=== PATIENT | male | born 1965 ===

== ENCOUNTER 2024-05-03 10:30 | Emergency (ER) | payer SELFPAY | END 2024-05-03 11:25 | disposition home or self-care (01) | LOC: LL.ED 10:30 | DX: M96.89 Other intraoperative and postprocedural complications and disorders of the musculoskeletal system (principal); I10 Essential (primary) hypertension; E11.9 Type 2 diabetes mellitus without complications; Z79.4 Long term (current) use of insulin; Z88.5 Allergy status to narcotic agent | CPT/HCPCS: 73070-RT; 99283 ==